=== PATIENT | female | born 1945 | race Caucasian/White ===

== ENCOUNTER → 2017-10-27 | Outpatient (CLI) | payer BC ==
[2017-10-27 13:49] LABS: HEMATOCRIT 43.9 % (37-47); HEMOGLOBIN 14.9 g/dL (12.0-16.0); MEAN CELL VOLUME 91.8 fL (80-100); MEAN CORPUSCULAR HEMOGLOBIN 31.2 pg (25-34); MEAN CORPUSCULAR HGB CONC 33.9 g/dl (32-36); MEAN PLATELET VOLUME 11.8 fL (7.4-10.4); PLATELET COUNT 249 K/uL (130-400); RED CELL DISTRIBUTION WIDTH CV 13.3 % (11.5-14.5); RED CELL DISTRIBUTION WIDTH SD 44.8 fL (36.4-46.3); WHITE BLOOD COUNT 4.29 K/uL (4.8-10.8)
[2017-10-27 14:24] LABS: ALBUMIN 3.8 gm/dl (3.4-5.0); ALKALINE PHOSPHATASE 81 U/L (45-117); ALT/SGPT 35 U/L (12-78); AST/SGOT 24 U/L (15-37); BLOOD UREA NITROGEN 22 mg/dl (7-18); CARBON DIOXIDE 31 mmol/L (21-32); CHOLESTEROL 179 mg/dl (0-200); CREATININE 0.87 mg/dl (0.60-1.20); GLUCOSE 85 mg/dl (70-99); LDL CHOLESTEROL CALCULATED 88 mg/dl; SODIUM 141 mmol/L (136-145); TOTAL PROTEIN 7.1 gm/dl (6.4-8.2)
== END | disposition home or self-care (01) ==
LOC: C.LABBC 09:28
PROVIDERS: ATTEND Internal Medicine
DX: I10 Essential (primary) hypertension (principal); E78.5 Hyperlipidemia, unspecified; E03.9 Hypothyroidism, unspecified

== ENCOUNTER 2023-12-18 06:25 | Observation (INO) ==
--- NOTE | 2023-10-26 12:40 | PAT Medication Instructions ---
Medication Instructions Date of Service October 26, 2023 Home Medications Medication Instructions Recorded sertraline 25 mg tablet 25 mg PO QAM #90 tabs 12/19/22 bupropion HCl 100 mg tablet 100 mg PO HS #90 tabs 10/12/23 bupropion HCl 150 mg tablet,12 hr 150 mg PO QAM #90 ea 10/12/23 sustained-release cholecalciferol (vitamin D3) 125 mcg (5,000 unit) tablet (Vitamin D3) 125 mcg PO QAM sertraline 25 mg tablet 25 mg PO QAM dimenhydrinate 25 mg chewable tablet (Dramamine) 50 mg PO HS melatonin 3 mg capsule 3 mg PO HS bupropion HCl 100 mg tablet 100 mg PO HS bupropion HCl 150 mg tablet,12 hr sustained-release 150 mg PO QAM amlodipine 5 mg tablet 5 mg PO QPM atorvastatin 10 mg tablet 10 mg PO QPM calcium carbonate 600 mg-vitamin D3 5 mcg (200 unit) tablet 1 tab PO BID levothyroxine 88 mcg tablet 44 - 88 mcg PO UD mupirocin 2 % topical ointment 1 applic topical UD PRN broken blood vessel in nose telmisartan 20 mg tablet 20 mg PO QAM Continue as directed levothyroxine 88 mcg tablet 44 - 88 mcg PO UD STOP taking 24 hours before surgery mupirocin 2 % topical ointment 1 applic topical UD PRN broken blood vessel in nose DO NOT take the morning of surgery cholecalciferol (vitamin D3) 125 mcg (5,000 unit) tablet (Vitamin D3) 125 mcg PO QAM telmisartan 20 mg tablet 20 mg PO QAM calcium carbonate 600 mg-vitamin D3 5 mcg (200 unit) tablet 1 tab PO BID Take morning of surgery With a small sip of water, OTHERWISE NOTHING TO EAT OR DRINK AFTER MIDNIGHT: sertraline 25 mg tablet 25 mg PO QAM bupropion HCl 150 mg tablet,12 hr sustained-release 150 mg PO QAM Take evening before surgery melatonin 3 mg capsule 3 mg PO HS bupropion HCl 100 mg tablet 100 mg PO HS amlodipine 5 mg tablet 5 mg PO QPM atorvastatin 10 mg tablet 10 mg PO QPM dimenhydrinate 25 mg chewable tablet (Dramamine) 50 mg PO HS calcium carbonate 600 mg-vitamin D3 5 mcg (200 unit) tablet 1 tab PO BID Other Notes If you have any questions please call us at [phone] or [phone] or [phone] or [phone]
--- NOTE | 2023-11-08 09:38 | Anesthesiology Consultation ---
Date of Service November 08, 2023 Assessment & Plan (1) Encounter for pre-operative examination: - creatinine: 1.5 elevated from 04/2023. Patient declined repeat BMP today in PAT and requested further determination be to her PCP. Awaiting [place] PCP response to workload note. PCP office visit 11/09/23. - Outpatient joint assessment: Patient is currently scheduled for inpatient pathway. If re-evaluated and patient/surgeon requests outpatient pathway, patient is not recommended candidate for outpatient joint program from anesthesia standpoint. Chart Review Chart Review: Pending: Refer to Additional Notes / Consult section and Patient seen in Pre Admission Testing Teaching & Discussion Pre-Anesthesia Teaching/Discussion Notes: Instructed NPO after midnight before surgery, except medications with 15 cc of water. Medication instructions provided according to the PAT guidelines. History Surgery Operation Date: 09/18/23 12:30 Proposed Procedures p Right Reerse Total Shoulder Arthroplasty - Higinio Sykes DO Operation Date: 12/18/23 10:00 Proposed Procedures p Right Reverse Total Shoulder Arthroplasty - Higinio Sykes DO Height/Weight Height: 5 ft 5 in Weight: 67.4 kg Allergies Allergy/AdvReac Type Severity Reaction Status Date / Time Sulfa (Sulfonamide Allergy Unknown rash Verified 10/25/23 13:20 Antibiotics) sulfamethoxazole Allergy Unknown Rash Verified 10/25/23 13:20 [From Bactrim] trimethoprim [From Bactrim] Allergy Unknown Rash Verified 10/25/23 13:20 Medications Home Medications Medication Instructions Recorded Confirmed Last Taken cholecalciferol (vitamin D3) 125 125 mcg PO QAM 03/03/20 10/25/23 03/09/20 12:00 mcg (5,000 unit) tablet (Vitamin D3) sertraline 25 mg tablet 25 mg PO QAM #90 tabs 12/19/22 10/25/23 Unknown dimenhydrinate 25 mg chewable 50 mg PO HS 04/05/23 10/25/23 Unknown tablet (Dramamine) melatonin 3 mg capsule 3 mg PO HS 04/05/23 10/25/23 Unknown bupropion HCl 100 mg tablet 100 mg PO HS #90 tabs 10/12/23 10/25/23 Unknown bupropion HCl 150 mg tablet,12 hr 150 mg PO QAM #90 ea 10/12/23 10/25/23 Unknown sustained-release amlodipine 5 mg tablet 5 mg PO QPM 10/20/23 10/25/23 Unknown atorvastatin 10 mg tablet 10 mg PO QPM 10/20/23 10/25/23 Unknown calcium carbonate 600 mg-vitamin 1 tab PO BID 10/20/23 10/25/23 Unknown D3 5 mcg (200 unit) tablet levothyroxine 88 mcg tablet 44 - 88 mcg PO UD 10/20/23 10/25/23 Unknown mupirocin 2 % topical ointment 1 applic topical UD PRN broken 10/20/23 10/25/23 Unknown blood vessel in nose telmisartan 20 mg tablet 20 mg PO QAM 10/20/23 10/25/23 Unknown Past Medical History Medical History Age related osteoporosis Anxiety and depression Dry eye syndrome History of herpes zoster x2 of the eye within a yr. 2021 or 2022. History of osteopenia History of postoperative nausea and vomiting Hyperlipidemia Hypertension controlled, stable per pt Hypothyroidism Kidney disease stage 2 or 3. Shoulder problem left shoulder injection 09/2023. Patient denies h/o stroke, seizures, heart attack, heart failure, DM, blood c lots/DVTs or blood transfusions. 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 History of PONV History of PONV (denies needing scop patch) and Hx of Motion Sickness Social History Smoking Status: Never smoker Do You Dip or Chew Tobacco: No Hx Alcohol Use: Yes Alcohol type: beer alcohol intake frequency: holidays/special occasions only Hx Substance Use: No substance use type: does not use Review of Systems Patient denies chest pain, shortness of breath, dyspnea on exertion, snoring, witnessed apneas, reflux, fever, chills, cough, wheezing, or palpitations. Physical Exam Vital Signs Vitals BP 104/68 P 73 TEMP 97.9 SP02 95% on RA RESP 18 Physical Patient resting comfortably in chair in no acute distress, alert and oriented, responding appropriately throughout visit Full cervical extension range of motion without pain TMD 3.5 finger breadths Mallampati Score 2 Dentition: permanent right upper partial and several crowns; denies chipped or loose teeth, caps or implants Lungs: normal respiratory effort. Good air movement, clear throughout to auscultation, no adventitious breath sounds Cardiac: regular rate and rhythm, no murmurs noted Carotid arteries: negative bruit bilat Lab Results Anesthesia Preop Results Results Anesthesia Widget: WBC 4.65 K/ul (4.8-10.8) L 11/08/23 Hgb 14.4 g/dl (12.0-16.0) 11/08/23 Hct 43.6 % (37.0-47.0) 11/08/23 Plt 222 K/uL (130-400) 11/08/23 Na 140 mmol/L (136-145) 11/07/23 K 4.1 mmol/L (3.5-5.1) 11/07/23 Cl 106 mmol/L (98-107) 11/07/23 CO2 25 mmol/L (21-32) 11/07/23 BUN 35 mg/dl (6-23) H 11/07/23 Creat 1.53 mg/dl (0.6-1.2) H 11/07/23 Glucose Level 127 mg/dl (70-99(Fasting)) H 11/07/23 PT 10.4 Seconds (9.0-12.0) 11/08/23 PTT 26 Seconds (21-31) 11/08/23 INR 1.0 (0.9-1.1) 11/08/23 TSH 2.557 uIu/ml (0.300-4.500) 11/07/23 Blood Type A Positive 11/08/23 Antibody Screen NEGATIVE 11/08/23 Testing Electrocardiogram Date: 11/08/23 Sinus rhythm with marked sinus arrhythmia, rate 65 bpm Chest X-Ray Date: 11/08/23 Cardiomegaly with no active disease in the chest.
--- NOTE | 2023-12-06 07:32 | History & Physical Report ---
Date of Service December 06, 2023 Assessment & Plan (1) Osteoarthritis of right shoulder: We will proceed with a right reverse shoulder arthroplasty. Postoperatively she will be placed in a sling and kept overnight in the hospital for postop medical management. She plans to use energy physical therapy upon discharge. History of Present Illness Chief Complaint: Osteoarthritis of the right shoulder. Primary Care Provider: Olga Rossi MD Otilia is a pleasant 78-year-old female who has been dealing with chronic worsening osteoarthritis of both shoulders. She is really struggling to do anything away from her body and up overhead. I have given her injections in the past. The injections of her right shoulder are no longer helping. After failing extensive conservative treatment, she has elected proceed with a right reverse shoulder arthroplasty. Allergies Allergy/AdvReac Type Severity Reaction Status Date / Time Sulfa (Sulfonamide Allergy Unknown rash Verified 11/09/23 13:56 Antibiotics) sulfamethoxazole Allergy Unknown Rash Verified 11/09/23 13:56 [From Bactrim] trimethoprim [From Bactrim] Allergy Unknown Rash Verified 11/09/23 13:56 Home Medications Medication Instructions Recorded Confirmed Type cholecalciferol (vitamin D3) 125 125 mcg PO QAM 03/03/20 11/09/23 History mcg (5,000 unit) tablet (Vitamin D3) sertraline 25 mg tablet 25 mg PO QAM #90 tabs 12/19/22 11/09/23 Rx dimenhydrinate 25 mg chewable 50 mg PO HS 04/05/23 11/09/23 History tablet (Dramamine) melatonin 3 mg capsule 3 mg PO HS 04/05/23 11/09/23 History bupropion HCl 100 mg tablet 100 mg PO HS #90 tabs 10/12/23 11/09/23 Rx bupropion HCl 150 mg tablet,12 hr 150 mg PO QAM #90 ea 10/12/23 11/09/23 Rx sustained-release amlodipine 5 mg tablet 5 mg PO QPM 10/20/23 11/09/23 History atorvastatin 10 mg tablet 10 mg PO QPM 10/20/23 11/09/23 History calcium carbonate 600 mg-vitamin 1 tab PO BID 10/20/23 11/09/23 History D3 5 mcg (200 unit) tablet levothyroxine 88 mcg tablet 44 - 88 mcg PO UD 10/20/23 11/09/23 History mupirocin 2 % topical ointment 1 applic topical UD PRN broken 10/20/23 11/09/23 History blood vessel in nose telmisartan 20 mg tablet 20 mg PO QAM 10/20/23 11/09/23 History Past Med/Surg History Problem List (Updated 12/06/23 @ 07:53 by Higinio Sykes DO) Osteoarthritis of right shoulder Encounter for pre-operative examination Hypertrophy of both inferior nasal turbinates Nasal septal deviation Distal radius fracture, left Sinusitis 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 Kidney disease stage 2 or 3. Age related osteoporosis History of osteopenia History of herpes zoster x2 of the eye within a yr. 2021 or 2022. 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 History of hysterectomy History of open reduction and internal fixation (ORIF) procedure right ankle History of colonoscopy History of section X 1-1963 H/O eye surgery laser bilat History of blepharoplasty bilat History of cataract surgery bilat Family History Mother Breast cancer Father Bladder cancer Lung cancer Cardiac disorder Lung disease Calcium kidney stone Hypertension Other No family history of adverse response to anesthesia No family history of bleeding disorder Denies family history of Ovarian cancer Prostate cancer Diabetes Myocardial infarction Colorectal cancer Stroke Social History Smoking Status: Never smoker Second Hand Exposure: No; Do You Dip or Chew Tobacco: No; Hx Alcohol Use: Yes Alcohol type: beer Alcohol Intake Frequency: Monthly or Less Hx Substance Use: No Preferred Language: [place] Communication Ability: Effective Visual Impairment: Limited Hearing Ability: Normal 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 Physical Exam Physical examination of the right shoulder shows decreased range of motion weakness throughout. She has pain over the glenohumeral joint line.. Constitutional WD/WN, vitals as above Eyes PERRL, conjunctivae normal, anicteric sclerae ENMT external ear and nose normal, oropharynx normal Neck trachea midline, no thyromegaly Respiratory normal respiratory effort Cardiovascular RRR, no murmur, no edema Gastrointestinal (Abdomen) normal bowel sounds, soft, nontender, no hepatosplenomegaly Psychiatric A+Ox3, euthymic affect Results & Data Results & Data Laboratory Results . Diagnostic Findings X-rays of the right shoulder show advanced osteoarthritis of the right shoulder.. PG Care Time/CCT Total # of Minutes Spent Total Time Spent with Patient: Total time spent is greater than 50% in coordination of care (as documented) at patient's floor/unit and/or counseling patient: Coding Level of Care Code None Diagnoses Osteoarthritis of right shoulder M19.011
--- NOTE | 2023-12-18 06:11 | History & Physical Bridge Note ---
Date of Service December 18, 2023 History & Physical Bridge Note I have examined the patient, reviewed the History & Physical and in the interval since the performance of the History & Physical I have noted the following changes of clinical significance: no changes noted
[~2023-12-18 06:25] MED LIST: BUPIVACAINE 0.5 % 5 MG/1 ML PF 10ML VIAL ONE
[2023-12-18] MEDS ORDERED: LIDOCAINE 2% 2 ML VIAL/AMP(20MG/ML) INFIL ONE (06:58)
[2023-12-18] MEDS ORDERED: ROCURONIUM BROMIDE 10 MG/ML 5 ML VIAL IV ONE (06:58)
[2023-12-18] MEDS ORDERED: PROPOFOL IV EMULSION 10 MG/ML 20 ML VIAL IV ONE (06:58)
[2023-12-18] MEDS ORDERED: ONDANSETRON INJ 2 MG/ML 2 ML VIAL ONE ×2 (06:58→08:45)
[2023-12-18] MEDS ORDERED: fentaNYL citrate PF 100 MCG/2 ML VIAL ONE (06:59)
[2023-12-18] MEDS ORDERED: MIDAZOLAM HCL 1 MG/ML 2ML VIAL ONE (06:59)
[2023-12-18] MEDS: FAMOTIDINE 20 MG TAB PO SCH (07:11)
[2023-12-18] MEDS: dexAMETHasone**PF** 10 MG/ML VIAL IV SCH (07:11)
[2023-12-18] MEDS: GABAPENTIN 300 MG CAP PO SCH (07:11)
[2023-12-18] MEDS: ACETAMINOPHEN 500 MG TAB PO SCH ×2 (07:11→14:01)
[2023-12-18] MEDS: LR 60ML/HR IV SCH (07:12)
[2023-12-18] MEDS: LR 15ML/HR IV SCH (07:12)
[2023-12-18] MEDS ORDERED: ePHEDrine sulfate 50 MG/ML AMP IV PRN (07:13)
[2023-12-18] MEDS ORDERED: ONDANSETRON INJ 2 MG/ML 2 ML VIAL IV PRN ×2 (07:13→11:00)
[2023-12-18] MEDS ORDERED: fentaNYL citrate PF 100 MCG/2 ML VIAL IV PRN (07:13)
[2023-12-18] MEDS ORDERED: ATROPINE SULFATE 0.1 MG/ML 10ML SYR IV PRN (07:13)
[2023-12-18] MEDS: TRANEXAMIC ACID 1,000 MG **IV Pre-op IV SCH (07:36)
[2023-12-18] MEDS: ceFAZolin 2000MG 2,000 MG/15 ML SYR IV SCH ×2 (07:48→15:12)
[2023-12-18] MEDS ORDERED: DROPERIDOL 5 MG/2 ML VIAL ONE (08:10)
[2023-12-18] MEDS ORDERED: DEXAMETHASONE SOD INJ 4 MG/ML VIAL ONE (08:10)
[2023-12-18] MEDS: ROPIV 0.5% 246mg, Ketorolac 30mg, EPINEPHrine 0.5mg in NSS INFIL SCH (08:37)
[2023-12-18] MEDS: ORTHO JOINT ANESTHETIC ONE (08:41)
[2023-12-18] MEDS: TRANEXAMIC ACID 1,000 MG **IV Intra-op IV SCH (08:41)
[2023-12-18] MEDS ORDERED: SUGAMMADEX SODIUM 200 MG/2 ML VIAL IV ONE (08:46)
--- NOTE | 2023-12-18 08:47 | Operative Report ---
PG Post Operative Report Pre & Post Diagnosis Operation Date: 12/18/23 08:00 Pre-Op Diagnosis: Right Shoulder Osteoarthritis with tendinopathy long head of biceps tendon Post-Op Diagnosis: Right Shoulder Osteoarthritis with tendinopathy long head of biceps tendon I identified the patient and participated in the time-out.: Yes Procedure Operation Date: 12/18/23 08:00 Actual Procedures p Right Reverse Total Shoulder Arthroplasty, Uncemented(Right) with open biceps tenodesis as a distinct and separate procedure (modifier 59)- Higinio Sykes DO Surgeon Higinio Sykes DO Commercial Hvac Technician Higinio Moreno PA-C Estimated Blood Loss 150 Findings Consistent with Post-Op Diagnosis Specimens Right humeral head Description of Procedure A CPT code modifier 59: The long head of the biceps tendon was enlarged and inflamed consistent with tendinopathy. A tenodesis was opted. This was a separate and distinct portion of the procedure. For these reasons, a CPT code modifier 59 will be added to this case. Implants used: I used a [employer] Comprehensive reverse total shoulder arthroplasty system with a size 8 press fit micro humeral stem, a +6 offset humeral tray and a +3 retentive humeral bearing, a 25 mm 36 mm baseplate with a 6.5 mm central screw and superior and inferior locking screws, and a size eccentric glenosphere. Otilia arrived at [facility] for the above procedure. She was seen in the preoperative holding area and the operative extremity was identified and signed. She was given a preoperative antibiotic, TXA, and an interscalene nerve block. She was taken back to the operating room, laid on table in supine position, and put under general anesthesia. She was then put into the beachchair position. The shoulder was then prepped and draped in sterile fashion. A timeout was done and the patient and the operative extremity was properly identified. A deltopectoral approach was used. Dissection was taken down through the fascia and the deltoid was retracted laterally and the conjoined tendon was retracted medially. The anterior shoulder was exposed. The biceps groove was opened up and the biceps tendon was examined extensively. The biceps tendon demonstrated enlargement and inflammatory changes consistent with longstanding inflammation in the context of osteoarthritis and cuff arthropathy. The long head of the biceps tendon was then tenodesed to the upper border of the pectoralis major. This was a separate and distinct portion of the procedure. The subscapularis was then directly released off the lesser tuberosity with a peel technique. The inferior capsule was released and the humeral head was dislocated. A canal finding reamer was sent down the center of the humeral canal. Sequential reaming up to a size 8 reamer was done. Off that reamer, a proximal humeral resection guide was placed. The proximal humerus was resected at 135 of inclination and 25 of retroversion. Osteophytes were then removed and the glenoid was exposed. Time was spent doing a complete capsular and labral release. The glenoid guide was then placed in the inferior aspect of the glenoid. A 3.2 mm Steinmann pin was then placed into the glenoid vault at 10 of inclination. The glenoid baseplate was then reamed. The final size 25 mm baseplate was then impacted in the place. A 6.5 mm central screw was then placed followed by superior and inferior locking screws. A 36 mm eccentric glenosphere was then impacted into place. Surrounding soft tissues were then injected with 100 cc an orthopedic pain control cocktail. The proximal humerus was then exposed. Sequential broaching of the humerus up to a size 8 broach was done. Off that broach a +6 offset and +3 retentive humeral tray was trialed. The shoulder was then reduced, brought through a full range of motion, and felt to be stable. The shoulder was then dislocated and the broach was removed. The final size 8 micro press-fit humeral stem was then impacted into place. A +3 retentive humeral bearing was then snapped onto a +6 offset humeral tray. The humeral tray was then impacted onto the humeral stem. The shoulder was once again reduced, brought through a full range of motion, and felt to be stable. The subscapularis was retracted and unable to be repaired. A dilute betadyne lavage was then done for 3 minutes. The joint was then irrigated with normal saline solution. Hemostasis was obtained. The interval was closed with 2-0 Vicryl suture. The skin was then closed with 2-0 Vicryl and reema. A Silverlon dressing was placed and the arm was rested in a regular arm sling. She was then extubated and transferred to a hospital bed. She taken to the postanesthesia care unit in stable condition. She tolerated the procedure well. Higinio Moreno PA-C, was present for the entire procedure. He was critical for patient positioning, prepping, draping, retraction exposure, wound closure and application of sterile dressing. I attest to the content of the Intraoperative Record and any orders documented therein. Any exceptions are noted below.
[2023-12-18] MEDS ORDERED: PHENYLEPHRINE 100MCG/ML 10ML SYR IV ONE (10:09)
[2023-12-18] MEDS ORDERED: ePHEDrine sulfate 50 MG/5 ML SYR ONE (10:09)
--- NOTE | 2023-12-18 10:50 | Anesthesiology Progress Note ---
Date of Service December 18, 2023 Anesthesia Post Procedure Vital Signs Vital Signs: Temp Pulse Pulse Resp BP Pulse Ox O2 Del Method 12/18/23 10:25 97.5 F L 66 14 111/53 L 96 Nasal Cannula 12/18/23 10:15 65 14 106/57 L 95 Nasal Cannula 12/18/23 10:05 64 15 110/57 L 96 Nasal Cannula 12/18/23 09:55 64 14 106/53 L 95 Nasal Cannula 12/18/23 09:45 62 17 110/62 96 Nasal Cannula 12/18/23 09:35 73 16 108/54 L 92 Nasal Cannula 12/18/23 09:25 72 16 117/58 L 97 Oxymask 12/18/23 09:15 75 16 115/47 L 97 Oxymask 12/18/23 09:06 97.0 F L 75 14 122/56 L 94 Oxymask 12/18/23 06:48 97.9 F 65 18 148/87 H 96 Room Air O2 Flow Rate 12/18/23 10:25 2 12/18/23 10:15 2 12/18/23 10:05 2 12/18/23 09:55 2 12/18/23 09:45 2 12/18/23 09:35 2 12/18/23 09:25 5 12/18/23 09:15 9 12/18/23 09:06 9 12/18/23 06:48 Transfer of Care Handoff Completed per policy Notes Mental Status: alert / awake / arousable and participated in evaluation Patient Amnestic to Procedure: Yes Nausea / Vomiting: adequately controlled Pain: adequately controlled Airway Patency, RR, SpO2: stable & adequate BP & HR: stable & adequate Hydration State: stable & adequate Anesthetic Complications: no major complications apparent and Pt Satisfied with anesthetic care
[2023-12-18] MEDS ORDERED: bisacodyL 10 MG SUPP PR PRN (11:00)
[2023-12-18] MEDS ORDERED: HYDROmorphone INJ 0.5 MG/0.5 ML SYR IV PRN (11:00)
[2023-12-18] MEDS ORDERED: NALOXONE HCL 0.4 MG/1 ML VIAL/CARP IV PRN (11:00)
[2023-12-18] MEDS ORDERED: oxyCODONE HCL IR 5 MG TAB (IMMEDIATE RELEASE) PO PRN (11:00)
[2023-12-18] MEDS ORDERED: MAGNESIUM HYDROXIDE SUSP 30 ML UDC PO PRN (11:00)
[2023-12-18] MEDS ORDERED: METOCLOPRAMIDE HCL INJ 5 MG/ML 2 ML VIAL IV PRN (11:00)
[2023-12-18] MEDS: SODIUM CHLORIDE 0.9% 1,000 ML IV SCH (11:12)
[2023-12-18 11:41] VITALS: RESP 18
[2023-12-18] MEDS: LEVOTHYROXINE SODIUM 88 MCG TABLET PO SCH (11:42)
--- NOTE | 2023-12-18 13:10 | XRay Report ---
RIGHT SHOULDER 2 VIEWS CLINICAL HISTORY: Postoperative examination. FINDINGS: 2 portable views of the right shoulder are compared to study dated 10/10/2023. The skeletal structures are osteopenic. A right shoulder arthroplasty is in near anatomic alignment. No acute frac ture is seen. Skin clips, subcutaneous gas, and soft tissue swelling overlying the right shoulder are expected postsurgical changes. Atelectasis is seen at the right lung base. IMPRESSION: Expected postoperative findings status post right shoulder arthroplasty. No acute fractur e is seen. Electronically signed by: Morgan Juarez M.D. 12/18/2023 1:08 PM
[2023-12-18] MEDS: buPROPion HCl 100 MG TABLET PO SCH (20:21)
[2023-12-18] MEDS: amLODIPine BESYLATE 5 MG TAB PO SCH (20:21)
[2023-12-18] MEDS: MELATONIN 3 MG TAB PO SCH (20:21)
[2023-12-18] MEDS: ATORVASTATIN 10 MG TAB PO SCH (20:21)
[2023-12-18] MEDS: DOCUSATE SODIUM 100 MG CAP PO SCH (20:22)
[2023-12-18] MEDS: SENNA 8.6 MG TAB PO SCH (20:22)
--- NOTE | 2023-12-19 07:15 | Orthopedic Progress Note ---
Date of Service December 19, 2023 Assessment & Plan (1) Status post reverse total replacement of right shoulder: Overall she is doing well. She is not having much pain in the right shoulder. She will be seen by physical therapy today for ambulation and range of motion exercises. She can be discharged home later today. She will follow-up with orthopedics in 2 weeks. Jayleen Bingham was seen and examined at bedside this morning. Overall she is doing very well. She is not having much pain in the right shoulder. She was able to get some sleep last night. She has no complaints.. Review of Systems All systems reviewed & are unremarkable except as noted in HPI & below. Physical Exam On physical examination of the right shoulder, the dressing is clean and dry. She is wearing her sling as instructed. She has active motion of her hand and her wrist.. Results & Data Results & Data Laboratory Results . Diagnostic Findings Postoperative x-rays of the right shoulder show the prosthesis to be in anatomic alignment without any evidence of fracture complication, or loosening.. PG Care Time/CCT Total # of Minutes Spent Total Time Spent with Patient: Total time spent is greater than 50% in coordination of care (as documented) at patient's floor/unit and/or counseling patient: Coding Level of Care Code 02047 Post Operative Follow-Up Diagnoses Status post reverse total replacement of right shoulder Z96.611
--- NOTE | 2023-12-19 07:16 | Discharge Summary ---
Date of Service December 19, 2023 Admission HPI (Per Admitting) Otilia is a pleasant 78-year-old female who has been dealing with chronic worsening osteoarthritis of both shoulders. She is really struggling to do anything away from her body and up overhead. I have given her injections in the past. The injections of her right shoulder are no longer helping. After failing extensive conservative treatment, she has elected proceed with a right reverse shoulder arthroplasty. Admission Exam (Per Admitting) Physical examination of the right shoulder shows decreased range of motion weakness throughout. She has pain over the glenohumeral joint line.. Principal Diagnosis Same as "Discharge Diagnosis" noted below under Discharge Instructions. Discharge Exam On physical examination of the right shoulder, the dressing is clean and dry. She is wearing her sling as instructed. She has active motion of her hand and her wrist.. Discharge Data Procedures Performed Operation Date: 12/18/23 08:00 Actual Procedures p Right Reverse Total Shoulder Arthroplasty, Uncemented(Right) - Higinio Sykes DO Ordered Studies 12/18/23 05:00 US - OR guided needle placemen Routine Hospital Course (1) Status post reverse total replacement of right shoulder: On December 18, 2023 Otilia arrived at [facility] and underwent a right r everse shoulder replacement without complication. She had a general anesthetic and a right interscalene nerve block. Postoperatively she was placed in a sling and transferred to the general orthopedic floors. Her hospital course was uneventful. On postop day #1, her vital signs were stable and her pain was well-controlled. She was able to participate well with physical therapy doing ambulation and range of motion exercises. She was then discharged home. She will follow-up orthopedics in 2 weeks. PG Care Time/CCT Total # of Minutes Spent Total Time Spent with Patient: Total time spent is greater than 50% in coordination of care (as documented) at patient's floor/unit and/or counseling patient: Discharge Plan Discharge Items Patient Disposition: Home - Self-Care Reason For Visit: Degenerative Joint Disease Right Shoulder Discharge Diagnosis: Right reverse shoulder replacement Activity: Per Instructions section Non-emergency contact: Surgeon Call non-emergency contact if: your wound has increased redness and your wound has increased drainage Follow-up/Referrals: Olga Rossi MD [Primary Care Provider] - Diet: Regular Addtl Attending Provider Instructions: Activity and Therapy Recommendations: * If you are using [facility] then therapy will be provided at your home until they feel you have accomplished all of your goals. * If you are using [facility] then Physical Therapy will be provided until they feel you are ready to start Outpatient Physical Therapy. * If you are not using home therapy then Outpatient Physical Therapy should start about 3-5 days from your day of surgery. Therapy will last about 8-12 weeks * Wear your sling for 3 weeks, unless otherwise instructed. You may remove your sling to shower and to dress, but otherwise, you should be in your sling at all times, including while sleeping * The shoulder replacement is very stable and you can use your hand while in the sling * You were shown a series of exercises in the hospital. Do these exercises daily including the exercises you were shown in physical therapy. Medications: * Narcotic You will likely be sent home from the hospital with a prescription for the narcotic pain medication that worked best throughout your stay. * Cefadroxil -take the antibiotic twice a day for 10 days to help prevent infection. * Other medications may be prescribed for specific circumstances. If you have any questions, please call the office at . * Resume previous home medications unless otherwise instructed Dressing Care: Leave the Silverlon dressing in place for 7 days. After 7 days you may remove the dressing. If the incision is not draining then you may leave the reema open to air. If there is a little bit of drainage or if the reema are getting stuck on your clothing then cover the incision with a dry dressing. The reema will be removed at your 2 week follow-up appointment. Showering: You may shower with the Silverlon dressing in place. Do not let the shower spray hit the dressing directly. Pat the Silverlon dressing dry. If the dressing becomes wet underneath, then simply remove the dressing. Keep the incision dry until you are 7 days out from the day of surgery. After 7 days you may remove the Silverlon dressing and shower with the reema exposed. Let soapy water run over the reema and pat them dry. Do not scrub or soak the incision. Things To Watch For: * Drainage from the incision site that occurs more than one week after your surgery. * Increased redness at the incision site. * Fever above 102 degrees Fahrenheit. * Unusual chest pain or shortness of breath. * Call [facility] at with any of the above problems Follow-Up Visit: Follow-up with Dr. Sykes's PA (Higinio Moreno) 2-3 weeks after your day of surgery. He will remove your reema and answer any questions. If you have any additional questions or concerns, Dr Sykes is usually in the office at the same time and will be available An appointment was probably scheduled when you signed-up for surgery in the office. If you have any questions call More detailed instructions as well as Frequently Asked Questions were provided in a folder by our office when you signed-up for surgery. Please review these instructions when you get home. If you have any further questions or concerns, please feel free to call the office at [phone] Pending Studies at Discharge: No Stand-Alone Forms: My [facility], Smoking Cessation Medications and DC Order Prescriptions: New oxycodone 5 mg Tablet 5 mg PO Q4H PRN (Reason: pain) Qty: 30 0RF cefadroxil 500 mg capsule 500 mg PO BID 10 Days Qty: 20 0RF Continued sertraline 25 mg tablet 25 mg PO QAM Qty: 90 3RF bupropion HCl 100 mg tablet 100 mg PO HS Qty: 90 3RF Rx Instructions: Take 150mg tab in AM and 100mg tab in PM bupropion HCl 150 mg tablet sustained-release 12 hr 150 mg PO QAM Qty: 90 3RF Rx Instructions: Take 150mg tab in AM and 100mg tab in PM Dramamine 25 mg tablet,chewable 50 mg PO HS melatonin 3 mg capsule 3 mg PO HS cholecalciferol (vitamin D3) [Vitamin D3] 125 mcg (5,000 unit) Tablet 125 mcg PO QAM calcium carbonate-vitamin D3 [Calcium + D] 600 mg-5 mcg (200 unit) Tablet 1 tab PO BID Patient Comments: 1200 mg each tablet, d 3 40 mcg each tablet. atorvastatin 10 mg tablet 10 mg PO QPM amlodipine 5 mg tablet 5 mg PO QPM levothyroxine 88 mcg tablet 44 - 88 mcg PO UD Patient Comments: TAKES 88MC [id number], TAKES 1/2 PILL ON SUNDAYS -morning Rx Instructions: TAKE 1 TABLET DAYS 1-6 AND 1/2 TABLET ON DAY 7 telmisartan 20 mg tablet 20 mg PO QAM Patient Comments: Discharge Orders: Discharge Order (Routine); Ordered 12/19/23 Ordered By: Higinio Sykes Admission Data Admit Date/Time: 12/18/23 09:04 Attending Provider: Higinio Sykes Admit Provider: Higinio Sykes Primary Care Provider: Olga Rossi
[2023-12-19 08:00] VITALS: BP 133/74; PULSE 66; TEMP 98.1; O2SAT 93
[2023-12-19] MEDS: dexAMETHasone 4 MG TAB PO SCH (08:20)
[2023-12-19] MEDS: MULTIVITAMIN TAB PO SCH (08:20)
[2023-12-19] MEDS: SERTRALINE HCL 50 MG TABLET PO SCH (08:20)
[2023-12-19] MEDS: LOSARTAN POTASSIUM 25 MG TAB PO SCH (08:20)
[2023-12-19] MEDS: buPROPion SR 150 MG TABCR PO SCH (08:21)
[2023-12-24] MEDS ORDERED: LEVOTHYROXINE SODIUM 88 MCG TABLET PO SCH (06:30)
== END 2023-12-19 10:49 | disposition home or self-care (01) ==
LOC: 3E 06:25 → ASU 06:25